=== PATIENT | male | born 1955 | race Caucasian/White ===

== ENCOUNTER 2019-07-18 06:49 | Day surgery (SDC) | payer MEDICAID ==
[2019-07-15 14:44] LABS: BASOPHILS # (AUTO) 0.1 X10'3 (0-0.2); BASOPHILS % (AUTO) 0.9 % (0-1); EOSINOPHILS # (AUTO) 0.4 X10'3 (0-0.9); EOSINOPHILS % (AUTO) 3.7 % (0-6); LYMPHOCYTES # (AUTO) 2.8 X10'3 (1.1-4.8); LYMPHOCYTES % (AUTO) 24.5 % (21-51); MEAN CORPUSCULAR HGB CONC 33.9 g/dL (33.0-36.5); MEAN CORPUSCULAR VOLUME 94.5 FL (78-98); MEAN PLATELET VOLUME 8.5 FL (7.4-10.4); MONOCYTES # (AUTO) 0.7 X10'3 (0-0.9); MONOCYTES % (AUTO) 6.4 % (2-12); NEUTROPHILS # (AUTO) 7.4 X10'3 (1.8-7.7); NEUTROPHILS % (AUTO) 64.5 % (42-75); PRE OP HEMATOCRIT 46.1 % (42.0-52.0); PRE OP HEMOGLOBIN 15.6 g/dL (14.0-17.9); PRE OP PLATELET COUNT 188 X10'3 (140-440); RED BLOOD COUNT 4.88 X10'6 (4.70-6.10); RED CELL DISTRIBUTION WIDTH 13.5 % (11.5-14.5)
[2019-07-15 14:56] LABS: ALBUMIN 4.2 G/DL (3.4-5.0); ALBUMIN/GLOBULIN RATIO 1.2 (1.1-1.5); ALKALINE PHOSPHATASE 45 IU/L (46-116); BLOOD UREA NITROGEN 17 MG/DL (7-18); BUN/CREATININE RATIO 12.3 (5.4-32.0); CALCIUM 9.9 MG/DL (8.5-10.1); CHLORIDE 104 MMOL/L (99-107); CREATININE 1.38 MG/DL (0.60-1.10); PRE OP ALT 23 U/L (30-65); PRE OP ANION GAP 8 (8-16); PRE OP AST 17 U/L (10-37); PRE OP BILIRUB, TOTAL 0.3 MG/DL (0.0-1.0); PRE OP GLUCOSE 122 MG/DL (70-104); PRE OP POTASSIUM 4.6 MMOL/L (3.4-5.1); PRE OP SODIUM 140 MMOL/L (135-145); TOTAL CARBON DIOXIDE 27.9 MMOL/L (24-32); TOTAL PROTEIN 7.6 G/DL (6.4-8.2); eGFR 52 ML/MIN
[~2019-07-18] VITALS: Ht 175.3 cm; Wt 73.0 kg
[2019-07-18] VITALS (7 sets, daily range): BP systolic 108–119; BP diastolic 59–71
[~2019-07-18 06:49] MED LIST: ACET-2615 PO; ASPI81TA30 PO; ATOR40TA PO; BUPIVAcaine/PF 2.5 mg/ml (0.25%) 30ml vial ONE; CALC-1074 PO; CYAN50008 PO; DOCUMENT DATE & TIME OF BETA-BLOCKER PO ONE; FOLATE PO; LISI-604 PO; METO-395 PO; TIOT18CA3 INH; TRAZ-251 PO; VENL150C2 PO; cefazolin/dext.iso 2gm/50ml 50 ML IV ONE; famotidine 20mg tablet PO ONE; ringers solution, lacted 1,000 ML IV SCH
[2019-07-18] MEDS ORDERED: LIDOcaine 0.5% (5mg/ml) 50ml vial ONE (07:13)
[2019-07-18] MEDS ORDERED: ringers solution, lacted 1,000 ML IV SCH (08:11)
[2019-07-18] MEDS ORDERED: labetalol 20mg/4ml (5mg/ml) syringe IV PRN (08:15)
[2019-07-18] MEDS ORDERED: hydrALAZINE 20mg/ml inj. IV PRN (08:15)
[2019-07-18] MEDS ORDERED: ondansetron/PF 4mg/2ml inj IV PRN (08:15)
[2019-07-18] MEDS ORDERED: fentaNYL/PF 50MCG/1 ML 2ML syringe IV PRN ×2 (08:15)
[2019-07-18] MEDS ORDERED: morphine 4 MG/ML inj SYRINge IV PRN (08:15)
[2019-07-18] MEDS ORDERED: morphine 2 MG/ML inj. syringe IV PRN (08:15)
[2019-07-18] MEDS ORDERED: midazolam 2 mg/2 ml injection ONE (09:50)
[2019-07-18] MEDS ORDERED: fentaNYL/PF 50MCG/1 ML 2ML syringe ONE (09:50)
--- NOTE | 2019-07-18 10:31 | NUR ---
Received from OR via deondre, accompanied by Anesthesiologist Miko and report given by Anesthesiolgist. Pt alert and responsive, mask to 10L sats 98% VS WNL, left hand wrapped with splint and fingers exposed good cap refill patient able to move fingers. 20G IV to right hand IVF 100cc/hr. No pain. Ice pack provided. Addendum: 07/18/19 at 1218 by Nicki Olivo RN This note should have been made at 1126 Addendum: 07/18/19 at 1218 by Nicki Olivo RN ERASE NOTE
--- NOTE | 2019-07-18 11:51 | NUR ---
Pt discharged to vehicle by wheelchair without incident, IV DC'd and patient verbalized understanding of all discharge information. Fingers still have good cap refill less than 3 seconds, some sensation and 2/10 pain tolerable states patient. present for discharge. No new pain meds provided and patient understands that he is to take ibuprofen and tylenol for pain and call MD office if that's not sufficent, per MD's recommendation.
== END 2019-07-18 11:51 | disposition home or self-care (01) ==
LOC: PAS 06:49
PROVIDERS: ATTEND Orthopaedic Surgery Hand Surgery
DX: M72.0 Palmar fascial fibromatosis [Dupuytren] (principal); J44.9 Chronic obstructive pulmonary disease, unspecified; I10 Essential (primary) hypertension; M19.90 Unspecified osteoarthritis, unspecified site; E78.00 Pure hypercholesterolemia, unspecified; M81.0 Age-related osteoporosis without current pathological fracture; F17.210 Nicotine dependence, cigarettes, uncomplicated; Z79.84 Long term (current) use of oral hypoglycemic drugs; Z79.82 Long term (current) use of aspirin; Z79.899 Other long term (current) drug therapy; Z98.890 Other specified postprocedural states; Z72.89 Other problems related to lifestyle
CPT/HCPCS: 26123; 36415; 80053; 82948; 85025; 93005; A6222; J2001; J2250; J3010; J3490; J7120; A4215; A4618; A6449; A7000

== ENCOUNTER 2022-03-27 12:24 | Emergency (ER) | payer MEDICAID ==
[~2022-03-27] VITALS: Ht 175.3 cm; Wt 68.0 kg
[~2022-03-27 12:24] MED LIST changes: -BUPIVAcaine/PF 2.5 mg/ml (0.25%) 30ml vial ONE; -CYAN50008 PO; +CYAN50009 PO; -DOCUMENT DATE & TIME OF BETA-BLOCKER PO ONE; -LISI-604 PO; +LISI5TAB22 PO; -VENL150C2 PO; +VENL150C4 PO; -cefazolin/dext.iso 2gm/50ml 50 ML IV ONE; -famotidine 20mg tablet PO ONE; -ringers solution, lacted 1,000 ML IV SCH
[2022-03-27 12:40] VITALS: BP 173/98
[2022-03-27] MEDS ORDERED: HYDROcodone/acetaminophen 10/325mg tab PO ONE (14:50)
[2022-03-27] MEDS ORDERED: HYDR-3965 PO (15:31)
[2022-03-27] MEDS ORDERED: CEPH-585 PO (15:36)
== END 2022-03-27 16:18 | disposition home or self-care (01) ==
LOC: ER 12:25
DX: M54.2 Cervicalgia (principal); L03.116 Cellulitis of left lower limb; I10 Essential (primary) hypertension; J44.9 Chronic obstructive pulmonary disease, unspecified; M19.90 Unspecified osteoarthritis, unspecified site; G89.29 Other chronic pain; F32.A Depression, unspecified; Z98.890 Other specified postprocedural states; Z79.82 Long term (current) use of aspirin; Z79.2 Long term (current) use of antibiotics; Z79.899 Other long term (current) drug therapy
CPT/HCPCS: 93971; 99284

== ENCOUNTER 2024-11-26 10:26 | Outpatient (CLI) | payer MEDICARE, MEDICAID ==
[~2024-11-26 10:26] MED LIST changes: -VENL150C4 PO; +VENL150C5 PO
--- NOTE | 2024-11-26 18:54 | RADIOLOGY REPORT ---
EXAM: CT CT LOWER EXTREMITY INDICATION: PAIN L HIP; LEFT HIP TECHNIQUE: Axial images of left hip have been obtained along with coronal and sagittal reformatted im ages. All CT scans at this facility use dose modulation, iterative reconstruction, and/or weight base d dosing when appropriate to reduce radiation dose to as low as reasonably achievable. COMPARISON: None FINDINGS: BONES: No CT evidence of an acute fracture or aggressive osseous lesion. MUSCLES: No abnormal attenuation. JOINT SPACES: No joint effusion. Pdhq-mq-[id number] left superior hip joint space loss. TENDONS/LIGAMENTS: Intact. OTHER: Bladder wall thickening. Tlsi-cn-lefpozuh prostatomegaly. IMPRESSION: 1. No CT evidence left hip fracture or injury. Xoll-ku-vkbzuwyf left superior hip joint space loss. 2. Bladder wall thickening. Rkoa-nm-mnrzdulb prostatomegaly.
== END 2024-11-26 23:59 | disposition home or self-care (01) ==
LOC: RAD 10:26
PROVIDERS: ATTEND Family Medicine
DX: M25.552 Pain in left hip (principal); N40.0 Benign prostatic hyperplasia without lower urinary tract symptoms
CPT/HCPCS: 73700